=== PATIENT | male | born 1965 | race Caucasian/White ===

== ENCOUNTER 2024-08-10 04:36 | Emergency (ER) | payer MEDICARE, SELFPAY ==
[2024-08-10 04:40] VITALS: BP 163/94; PULSE 100; RESP 16; TEMP 36.8; O2SAT 91; BMI 40.6
--- NOTE | 2024-08-10 04:59 | W.ED.GENADLT ---
HPI - General Adult General: Chief complaint: General Medical Stated complaint: Fit for conf. Time Seen by Provider: 08/10/24 05:01 History of Present Illness: 58-year-old male patient who wears 2 to 3 L of oxygen constantly at home. He was placed under arrest last night. Evidently, law enforcement is not able to go back into his house to get his oxygen. They have no oxygen availability currently in the half-way. He does complain of some shortness of breath without his oxygen. Related Data Home Medications ?Medication ?Instructions ?Recorded ?Confirmed amlodipine 10 mg tablet 10 mg PO DAILY 01/29/23 01/29/23 gabapentin 300 mg capsule 300 mg PO TID 01/29/23 01/29/23 lisinopril 10 mg tablet 10 mg PO DAILY 01/29/23 01/29/23 pantoprazole 20 mg tablet,delayed 20 mg PO DAILY 01/29/23 01/29/23 release (Protonix) ropinirole 0.25 mg tablet 0.25 mg PO DAILY 01/29/23 01/29/23 Allergies Allergy/AdvReac Type Severity Reaction Status Date / Time No Known Allergies Allergy Unverified 01/31/24 08:31 Physical Exam Const: COMMON NORMALS: no acute distress GENERAL APPEARANCE: cooperative; not ill appearing and not frail appearing HENMT: COMMON NORMALS: normocephalic, atraumatic and Normal external nose present HEAD & SCALP: normocephalic and atraumatic FACE & SINUS: normal facial exam and face symmetric NOSE: Normal external nose present Eye: COMMON NORMALS: Equal, round and reactive pupils present and EOMs intact bilaterally PUPIL: Yes Equal, round and reactive pupils present Neck/C-Spine: GENERAL: Yes trachea midline Chest: CHEST: Yes Symmetrical chest wall rise Resp: COMMON NORMALS: normal respiratory effort, No retractions, No use of accessory muscles and clear to auscultation bilaterally AUSCULTATION: clear to auscultation bilaterally Cardio: COMMON NORMALS: regular rate and regular rhythm RATE: regular rate RHYTHM: regular rhythm GI: COMMON NORMALS: Normal to inspection, nondistended, normoactive bowel sounds present Extremity: COMMON NORMALS: no pedal edema Neuro: [place] COMA SCALE: document [facility] findings [place] coma scale eye opening: Spontaneous Antonino coma scale verbal response: Orientated Anton[place] coma scale motor response: Obey commands [place] coma scale total score: 15 SENSORY EXAM: Yes extremities (intact) Psych: COMMON NORMALS: speech normal SPEECH: Yes normal speech Skin: COMMON NORMALS: no rashes or lesions noted GENERAL SKIN EXAM: no rashes or lesions noted Course Vital Signs: Vital signs: Vital Signs Temperature 98.2 F 08/10/24 04:40 Pulse Rate 100 08/10/24 04:40 Respiratory Rate 16 08/10/24 04:40 Blood Pressure 163/94 08/10/24 04:40 Pulse Oximetry 91 08/10/24 04:40 Oxygen Delivery Me thod Room Air 08/10/24 04:40 MDM - General Adult Medical Decision Making Patient's saturations are 95% on his home 3 L. Other vitals are normal. Physical exam was not remarkable. Room air saturations are 87%, qualifying him for home oxygen. DME home oxygen has been ordered for the patient. He will be allowed discharge. No radiology studies performed this visit Discharge Plan Discharge Patient Disposition: Home Clinical Impression: Chronic hypoxic respiratory failure, COPD (chronic obstructive pulmonary disease) Condition: Stable Prescriptions: No Action lisinopril 10 mg tablet 10 mg PO DAILY ropinirole 0.25 mg tablet 0.25 mg PO DAILY pantoprazole [Protonix] 20 mg tablet,delayed release (DR/EC) 20 mg PO DAILY gabapentin 300 mg capsule 300 mg PO TID amlodipine 10 mg tablet 10 mg PO DAILY Discharge Orders: Discharge ED (Routine); Ordered 08/10/24 Ordered By: Kal Jones Other Ambulatory Orders: DME: Oxygen (Order) Location: None Selected Ordered By: Kal Jones Patient Instructions: COPD (Chronic Obstructive Pulmonary Disease) (ED), Opioid Safety, Pain Management Activity Restrictions/Additional Instructions: Home oxygen has been ordered for you with a portable condenser. You will be set up for this. Return for worsening problems despite treatment. Print Language: Japanese Coding Level of Care Code ED Dietitian Helper for Alec Zhou
[2024-08-10 06:28] VITALS: BP 160/91; PULSE 76; RESP 18; O2SAT 91
== END 2024-08-10 07:35 | disposition home or self-care (01) ==
PROVIDERS: Emergency Provider Emergency Medicine
DX: J96.11 Chronic respiratory failure with hypoxia (principal); Z99.81 Dependence on supplemental oxygen; J44.9 Chronic obstructive pulmonary disease, unspecified
CPT/HCPCS: 99283

== ENCOUNTER 2024-11-24 13:34 | Oncology outpatient (recurring) (ONCR) | payer MEDICARE, MEDICAID, SELFPAY ==
[2024-11-24 14:50] LABS: Hematocrit 40.4 % (37-53); Hemoglobin 11.90 g/dL (11.27-16.99); Mean Corpuscular HGB Conc 29.5 g/dL (30-55); Mean Corpuscular Hemoglobin 21.9 pg (27-33); Mean Corpuscular Volume 74.3 fl (82-101); Nucleated Red Blood Cells % 0 %; Platelet Count 481 10^3/cmm (157-399); Red Blood Count 5.44 10^6/uL (3.85-5.65); White Blood Count 13.49 10^3/uL (3.29-11.43)
[2024-11-24 15:11] LABS: Alanine Aminotransferase 13 U/L (0-41); Albumin Level 3.8 g/dL (3.5-5.2); Alkaline Phosphatase 134 U/L (40-130); Anion Gap 13.4 (5-19); Aspartate Amino Transferase 14 U/L (0-40); Blood Urea Nitrogen 15 mg/dL (6-20); Calcium 9.0 mg/dL (8.5-10.5); Carbon Dioxide 24 mmol/L (22-29); Chloride 102 mmol/L (98-107); Creatinine Clr Calc Pharmacy 138.2866; Ferritin 27 ng/mL (30-400); Globulin 4.1 g/dL (1.3-4.6); Glucose 136 mg/dL (65-115); Iron 28 ug/dL (59-158); Osmolality Calculated 283 mOsm/kg (285-295); Potassium 4.4 mmol/L (3.5-5.1); Sodium 135 mmol/L (136-145); Total Iron Binding Capacity 355 mcg/dl; Total Protein 7.9 g/dL (6.6-8.7); Unsaturated Iron Binding 327 ug/dL (112-347)
[2024-11-24 15:27] LABS: Vitamin B12 530 pg/mL (232-1245)
== END 2024-11-24 23:59 | disposition home or self-care (01) ==
PROVIDERS: Visit Provider Internal Medicine Medical Oncology
DX: D50.9 Iron deficiency anemia, unspecified (principal)
CPT/HCPCS: 36415; 80053; 82607; 82728; 82746; 83540; 83550; 85025; 99204

== ENCOUNTER 2024-12-22 13:09 | Oncology outpatient (recurring) (ONCR) | payer MEDICARE, MEDICAID, SELFPAY ==
[2024-12-22 13:28] LABS: Hematocrit 42.0 % (37-53); Hemoglobin 12.80 g/dL (11.27-16.99); Mean Corpuscular HGB Conc 30.5 g/dL (30-55); Mean Corpuscular Hemoglobin 23.5 pg (27-33); Mean Corpuscular Volume 77.2 fl (82-101); Nucleated Red Blood Cells % 0 %; Platelet Count 391 10^3/cmm (157-399); Red Blood Count 5.44 10^6/uL (3.85-5.65); White Blood Count 10.67 10^3/uL (3.29-11.43)
[2024-12-22 13:46] LABS: Alanine Aminotransferase 12 U/L (0-41); Albumin Level 3.7 g/dL (3.5-5.2); Alkaline Phosphatase 159 U/L (40-130); Anion Gap 14.9 (5-19); Aspartate Amino Transferase 14 U/L (0-40); Blood Urea Nitrogen 9 mg/dL (6-20); Calcium 8.6 mg/dL (8.5-10.5); Carbon Dioxide 23 mmol/L (22-29); Chloride 103 mmol/L (98-107); Ferritin 11 ng/mL (30-400); Globulin 3.9 g/dL (1.3-4.6); Glucose 127 mg/dL (65-115); Iron 14 ug/dL (59-158); Osmolality Calculated 284 mOsm/kg (285-295); Potassium 3.9 mmol/L (3.5-5.1); Sodium 137 mmol/L (136-145); Total Iron Binding Capacity 407 mcg/dl; Total Protein 7.6 g/dL (6.6-8.7); Unsaturated Iron Binding 393 ug/dL (112-347)
[2024-12-22 14:02] LABS: Vitamin B12 549 pg/mL (232-1245)
== END 2024-12-25 23:59 | disposition home or self-care (01) ==
PROVIDERS: Visit Provider Internal Medicine Medical Oncology
DX: D50.9 Iron deficiency anemia, unspecified (principal); F17.220 Nicotine dependence, chewing tobacco, uncomplicated; R03.0 Elevated blood-pressure reading, without diagnosis of hypertension; Z79.899 Other long term (current) drug therapy
CPT/HCPCS: 36415; 80053; 82607; 82728; 82746; 83540; 83550; 85025; 99214

== ENCOUNTER 2025-01-19 13:00 | Oncology outpatient (recurring) (ONCR) | payer MEDICARE, MEDICAID, SELFPAY ==
[2025-01-12] MEDS: ferric carboxy (PYXIS) 750 MG in sodium chloride 0.9% (100 ml) 100 ML 345 MG IV (12:15)
[2025-01-12 12:56] VITALS: BP 165/72; PULSE 79; RESP 17; TEMP 37.1; O2SAT 93
[2025-01-19] MEDS: ferric carboxy (PYXIS) 750 MG in sodium chloride 0.9% (100 ml) 100 ML 345 MG IV (13:00)
[2025-01-19 13:23] VITALS: BP 141/82; PULSE 63; TEMP 36.9; O2SAT 96
== END 2025-01-24 23:59 | disposition home or self-care (01) ==
PROVIDERS: Visit Provider Internal Medicine Medical Oncology
DX: D50.9 Iron deficiency anemia, unspecified (principal); F17.220 Nicotine dependence, chewing tobacco, uncomplicated; R03.0 Elevated blood-pressure reading, without diagnosis of hypertension; Z79.899 Other long term (current) drug therapy
CPT/HCPCS: 96365; J1439; J7050